=== PATIENT | female | born 1930 | race African-American/Black ===

== ENCOUNTER 2018-12-06 19:31 | Inpatient (IN) | payer OTHER ==
[~2018-12-06] VITALS: Ht 165.1 cm; Wt 104.8 kg
[2018-12-06 19:32] VITALS: BP 178/56
[2018-12-06] MEDS ORDERED: VITAMIN D1000 UNI1 PO (19:48)
[2018-12-06] MEDS ORDERED: ATORVASTATIN CA40 MG PO (19:48)
[2018-12-06] MEDS ORDERED: ASPIR 8181 MG PO (19:48)
[2018-12-06] MEDS ORDERED: HYDROCHLOROTHIA25 M2 PO (19:49)
[2018-12-06] MEDS ORDERED: ZESTRIL40 MG PO (19:49)
[2018-12-06] MEDS ORDERED: GLUCOTROL5 MG PO (19:56)
[2018-12-06] MEDS ORDERED: TOPROL XL25 MG PO (19:56)
[2018-12-06] MEDS ORDERED: METFORMIN HCL500 MG PO (19:56)
[2018-12-06] MEDS ORDERED: MAGOX 400400 MG PO (19:57)
[2018-12-06 20:21] LABS: URINE BILIRUBIN NEGATIVE (Negative); URINE BLOOD 3+ (Negative); URINE COLOR YELLOW; URINE GLUCOSE-RANDOM* NEGATIVE (Negative); URINE KETONES TRACE (Negative); URINE LEUKOCYTES-REFLEX NEGATIVE (Negative); URINE NITRITE-REFLEX NEGATIVE (Negative); URINE PROTEIN (DIPSTICK) 2+ (Negative); URINE SPECIFIC GRAVITY >= 1.030 (1.005-1.035); URINE UROBILINOGEN 0.2 E.U./dl (0.2-1.0)
[2018-12-06 20:24] LABS: URINE CLARITY CLOUDY
[2018-12-06 20:26] LABS: SQUAMOUS 0-3 Few /LPF (0-3); URINE RBC 3-10 Few /HPF (0-2); URINE WBC-REFLEX 0-5 Rare /HPF (0-5)
[2018-12-06 20:27] LABS: AMORPHOUS URATES Few /LPF (None Seen); BACTERIA-REFLEX >30 Many /HPF (None Seen); CASTS None Seen /LPF (None Seen)
[2018-12-06 20:35] LABS: HEMATOCRIT 39.6 % (37.0-47.0); HEMOGLOBIN 13.5 gm/dL (12.0-15.0); MCH 30.3 pg (26.0-34.0); MCHC 34.1 g/dL (28.0-37.0); MCV 88.8 fL (80.0-100.0); PLATELET COUNT 229 thou/uL (150-400); RBC 4.46 mil/uL (4.20-5.00); RDW 13.6 % (10.5-14.5); WBC 10.7 thou/uL (4.0-11.0)
[2018-12-06 20:39] LABS: AMP/METHAMP Negative (Negative); BARBITURATES Negative (Negative); BENZODIAZEPINES Negative (Negative); COCAINE Negative (Negative); METHADONE Negative (Negative); OPIATES Negative (Negative); PCP Negative (Negative)
[2018-12-06 20:49] LABS: BE(vivo) 0.4 mmol/L (-2 to +3); HCO3 22.8 mmol/L (22.0-26.0); PCO2 30.2 mmHg (35.0-45.0); PO2 60.8 mmHg (80.0-100.0); pH 7.495 (7.360-7.450); sO2 93.5 % (92.0-98.0)
[2018-12-06 20:58] LABS: CALCIUM 9.3 mg/dL (8.5-10.1); CREATININE 1.2 mg/dL (0.6-1.0); POTASSIUM 4.2 mmol/L (3.5-5.1)
[2018-12-06 21:00] LABS: ABSOLUTE NEUTROPHILS 7.6 thou/uL (1.4-8.2)
[2018-12-06 21:01] LABS: ANISOCYTOSIS 1+
[2018-12-06 21:04] LABS: ALBUMIN 3.5 g/dL (3.4-5.0); DIRECT BILIRUBIN 0.2 mg/dL (<0.1-0.3); MAGNESIUM 1.8 mg/dL (1.8-2.4); TOTAL BILIRUBIN 1.1 mg/dL (<0.1-1.0); TOTAL PROTEIN 8.5 g/dL (6.4-8.2)
[2018-12-07] VITALS (9 sets, daily range): BP systolic 90–148; BP diastolic 34–65
--- NOTE | 2018-12-07 07:30 | NUR ---
Arrived from ER accompanied by family members. Pt. is alert ,oriented to person, place and some situation. Family stated pt. has dementia and short term memory loss. [place] , no hearing aids. Maintaining O2 sat in the low 90's on 2L/NC. Shortness of breath with exertion and has occasional cough. Temp of 102 upon arrival on the floor then down to 99.7 this am. IV abt and IV fluids started. Pt. has been repositioned. Moaning when being turned stating her legs hurt. Refused SCD's due to that. Lower extremities edematous. Family will bring DPOA documents to be placed in the chart. Bilateral sacral wounds with dressing. Will continue to monitor.
--- NOTE | 2018-12-07 11:00 | EKG ---
[address] [facility] [place] [address] ELECTROCARDIOGRAM REPORT Name: JADEN ZELAYA Room #: 361-P ADM IN M.R.#: [id number] ������������������ Admission: 12/06/18 ������������������ Attend Phys: Marcello Arnold MD Discharge: ������������������ Date of : [birth year] Report #: [id number] ����������������������������������������������������������������� [id number] THIS REPORT FOR: //name// [facility] ED Test Date: 2018-12-06 Test Time: 23:55:19 Pat Name: JADEN ZELAYA Department: Room: 361 Gender: F Hand Shaper: BAKARI : 1930 Requested By: Helga Cast Order Number: [id number] MD: Eugene Esquivel Measurements Intervals [place] Rate: 114 P: 12 WY: 159 QRS: 4 QRSD: 90 T: 222 QT: 334 QTc: 461 Interpretive Statements Sinus tachycardia Multiple premature complexes, vent & supraven Nonspecific ST segment abnormalities No previous ECG available for comparison Electronically Signed On 12-07-2018 10:59:52 CDT by Eugene Esquivel [email or web address] ��������������������������������������������� <ELECTRONICALLY SIGNED> ���������������������������������������� By: Eugene Esquivel MD ��������������������������������������������� 12/07/18 1059 2355 [id number] Eugene Esquivel MD /JESSE
--- NOTE | 2018-12-07 11:02 | EKG ---
[place] [address] [facility] [place] [address] ELECTROCARDIOGRAM REPORT Name: JADEN ZELAYA Room #: 361-P ADM IN M.R.#: [id number] ������������������ Admission: 12/06/18 ������������������ Attend Phys: Marcello Arnold MD Discharge: ������������������ Date of : [birth year] Report #: [id number] ����������������������������������������������������������������� [id number] THIS REPORT FOR: //name// [facility] Test Date: 2018-12-07 Test Time: 07:40:35 Pat Name: JADEN ZELAYA Department: Room: 361 Gender: F Supervisor [employer]: SONJA : 1930 Requested By: Kishan Iglesias Order Number: [id number] MD: Eugene Esquivel Measurements Intervals [place] Rate: 84 P: 11 [place]: 173 QRS: 9 QRSD: 77 T: 224 QT: 461 QTc: 546 Interpretive Statements Sinus rhythm Atrial premature complex Low voltage, precordial leads Nonspecific T abnormalities, diffuse leads Prolonged QT interval Baseline wander in lead(s) V1,V2 No previous ECG available for comparison Electronically Signed On 12-07-2018 11:02:13 CDT by Eugene Esquivel [email or web address] ��������������������������������������������� <ELECTRONICALLY SIGNED> ���������������������������������������� By: Eugene Esquivel MD ��������������������������������������������� 12/07/18 1102 Eugene Esquivel MD /JESSE
--- NOTE | 2018-12-07 15:04 | NUR ---
Assumed care of patient at 0700. Alert and oriented x2-3. Pleasant, follows commands. Forgetful. Denies pain. Maintaining oxygen saturations on 2L NC; does get SOB with activity while moving in bed or laying flat. Productive cough. BP low this afternoon, patient asymptomatic. Dr. Kramer notified and to continue IVF at this time. Low grade fever today. Patient had CT head, negative for anything acute. Doppler of lower extremeties, negative for DVT. Patient is mostly continent, but does display some urgency and does have stress incontinence at times. Using external female catheter at this time. Frequent repositioning and barrier cream applied to sacrum. Low airloss mattress pump applied. Attempting to progress towards POC. Will continue to monitor.
[2018-12-08 04:07] VITALS: BP 101/43
--- NOTE | 2018-12-08 04:19 | NUR ---
Pt. slept fair during the night in between cares. Maintaining O2 sat greater than 90 % on 2L/NC. Shortness of breath with exertion. Loose cough and has good cough effort. Repositioned for comfort. Periods of incontinence , external female cath replaced and voided 500 ml. Protective barrier cream applied on buttocks. Will continue to monitor.
[2018-12-08 04:56] LABS: HEMATOCRIT 32.9 % (37.0-47.0); MCH 29.8 pg (26.0-34.0); MCHC 33.5 g/dL (28.0-37.0); RBC 3.69 mil/uL (4.20-5.00); RDW 13.2 % (10.5-14.5); WBC 8.2 thou/uL (4.0-11.0)
[2018-12-08 05:03] LABS: CALCIUM 8.3 mg/dL (8.5-10.1); POTASSIUM 3.8 mmol/L (3.5-5.1)
[2018-12-08 08:09] VITALS: BP 132/62
[2018-12-08 11:53] VITALS: BP 108/46
--- NOTE | 2018-12-08 15:49 | NUR ---
Assumed care of patient at 0700. Vitals have been stable. Patient alert and oriented x2-3. Remains on 2L NC. SOB with activity. Onetime dose of Lasix given today with good effect. Patient has had adequate urine output. External female catheter in place. Repositioning every 2 hours, or as patient allows. Low airloss mattress pump in place. Poor appetite, continue to encourage PO intake. Family at bedside today. Slowly progressing towards POC. Will continue to monitor.
[2018-12-08 15:51] VITALS: BP 107/41
[2018-12-08 20:05] VITALS: BP 138/68
[2018-12-09 03:35] VITALS: BP 154/80
--- NOTE | 2018-12-09 04:20 | NUR ---
ENCOURAGED TURNS. HER PAIN TO LEFT RIBS HAS BEEN CONTROLLED WITH THE TYLENOL. SHE AWAKENS EASILY, AND IS COOPERATIVE AND FRIENDLY. CAREPLAN REVIEWED. PROGRESSING TOWARD DISCHARGE GOALS.
[2018-12-09 07:28] VITALS: BP 133/58
--- NOTE | 2018-12-09 10:10 | NUR ---
tool planner faxed initial referral to [facility], contacted Mary/admissions at facility to let her know. CM dept. will follow upl
--- NOTE | 2018-12-09 13:00 | NUR ---
on-going assessment: cm reviewed chart and met with patient at the bedside. PT IS FROM [facility]. PT WAS ADMITTED FOR AMS/PNEUMONIA. CM SPOKE WITH NIKI AT [facility] [place] WHO REPORTS PATIENT IS FROM THEIR FACILITY AND THEY WILL ACCEPT BACK AT DISCHARGE. CM NOTIFIED GOLD BUYER TO FAX CLINICAL TO [facility] [place]. CM SPOKE WITH PATIENTS GRANDDAUGHTER MARYAM TO NOTIFY AND SHE IS AGREEABLE WITH DISCHARGE PLAN. PT REPORTS SHE NORMALLY USES A WHEELCHAIR FOR AMBULATION. CM WILL CONTINUE TO FOLLOW TO ASSIST NEEDED.
--- NOTE | 2018-12-09 17:55 | NUR ---
ASSUMED PATIENT CARE AT 1100. A/O X1-2. VSS. INCONTIUNE URINE. Q2H TURN. NO DISDRESS NOTED. SLOWLY TOWARDS POC GOALS.
[2018-12-09 20:15] VITALS: BP 109/51
--- NOTE | 2018-12-10 04:05 | NUR ---
Pt. slept intermittently during the night. Repositioned for comfort. O2 at 2L/NC. No respiratory distress. Shortness of breath with exertion. Tylenol given for left rib pain with some relief. Afebrile. Extrenal female cath replaced. Used bedpan last night and had bm. Making progress towards care plan goals.
[2018-12-10 04:45] VITALS: BP 136/77
[2018-12-10 07:24] VITALS: BP 132/54
[2018-12-10 08:03] LABS: HEMATOCRIT 32.7 % (37.0-47.0); MCH 29.9 pg (26.0-34.0); MCHC 33.6 g/dL (28.0-37.0); MCV 88.8 fL (80.0-100.0); RBC 3.69 mil/uL (4.20-5.00); RDW 13.4 % (10.5-14.5); WBC 4.5 thou/uL (4.0-11.0)
[2018-12-10 08:08] LABS: CALCIUM 8.7 mg/dL (8.5-10.1); CREATININE 0.8 mg/dL (0.6-1.0); POTASSIUM 3.8 mmol/L (3.5-5.1)
[2018-12-10 08:24] LABS: TSH 3.271 uIU/mL (0.358-3.740)
[2018-12-10] MEDS ORDERED: AZITHROMYCIN 2250 MG PO (10:33)
[2018-12-10] MEDS ORDERED: KEFLEX500 M1 PO (10:34)
[2018-12-10] MEDS ORDERED: METOPROLOL SUCC25 M1 PO (10:35)
[2018-12-10 11:35] VITALS: BP 126/58
--- NOTE | 2018-12-10 14:05 | NUR ---
ON-GOING ASSESSMENT: CM REVIEWED CHART AND PT HAS ORDERS TO DISCHARGE BACK TO [facility] [place]. CM NOTIFIED NIKI THE LIASON AT [facility] [place] WHO STATES THEY CAN ACCEPT PT TODAY. CM FAXED D/C ORDERS TO NIKI AT [facility] [place] AND CONFIRMED THEY RECEIVED THEM. CM NOTIFIED BEDSIDE RN OF THE NUMBER FOR REPORT. CM ORDERED CHART COPY AND NOTIFIED MIDDLE SCHOOL COUNSELOR. PATIENT IS REQUIRING STRETCHER FOR TRANSPORTATION SO [facility] VAN TR[facility]#[id number]. CM NOTIFIED NIKI OF TRANSPORTATION TIME. CM ALSO SPOKE WITH PATIENTS GRANDDAUGHTER TO NOTIFY OF DISCHARGE TODAY.
--- NOTE | 2018-12-10 15:44 | NUR ---
ASSUMED PATIENT CARE AT 0700. A/O X2. GETTING MORE ALERT TODAY. NOTED LEFT BUTTOCK STAGE TWO ULCER. ASSITED PATIENT Q2H TURN. VSS, PROGRESSING TOWARDS POC GOALS.
== END 2018-12-10 16:51 | DRG 871 ==
LOC: ER 19:31 → EROBS 23:55 → 3W 23:55
PROVIDERS: Emergency Medicine; Internal Medicine; ADMIT Hospitalist
DX: A41.9 Sepsis, unspecified organism (principal); J18.9 Pneumonia, unspecified organism; G92 Toxic encephalopathy; J96.01 Acute respiratory failure with hypoxia; I69.351 Hemiplegia and hemiparesis following cerebral infarction affecting right dominant side; E66.9 Obesity, unspecified; Z68.38 Body mass index [BMI] 38.0-38.9, adult; E78.5 Hyperlipidemia, unspecified; M62.84 Sarcopenia; D64.9 Anemia, unspecified; I10 Essential (primary) hypertension; E11.9 Type 2 diabetes mellitus without complications; F32.9 Major depressive disorder, single episode, unspecified; L98.419 Non-pressure chronic ulcer of buttock with unspecified severity; Z79.82 Long term (current) use of aspirin; Z79.899 Other long term (current) drug therapy; Z87.891 Personal history of nicotine dependence
CPT/HCPCS: 10879

== ENCOUNTER 2020-04-09 09:34 | Inpatient (IN) | payer OTHER ==
[2020-04-09] VITALS (29 sets, daily range): BP systolic 87–143; BP diastolic 27–56
[~2020-04-09] VITALS: Ht 162.6 cm; Wt 97.5 kg
[~2020-04-09 09:34] MED LIST: ASPIR 8181 MG PO; ATORVASTATIN CA40 MG PO; AZITHROMYCIN 2250 MG PO; GLUCOTROL5 MG PO; HYDROCHLOROTHIA25 M2 PO; KEFLEX500 M1 PO; MAGOX 400400 MG PO; METFORMIN HCL500 MG PO; METOPROLOL SUCC25 M1 PO; TOPROL XL25 MG PO; VITAMIN D1000 UNI1 PO; ZESTRIL40 MG PO
[2020-04-09 10:08] LABS: BE(vivo) -7.3 mmol/L (-2 to +3); HCO3 15.9 mmol/L (22.0-26.0); PCO2 25.9 mmHg (35.0-45.0); pH 7.406 (7.360-7.450)
--- NOTE | 2020-04-09 10:54 | EKG ---
[facility] [place] [address] ELECTROCARDIOGRAM REPORT Name: GARCIAJADEN Room #: PRE M.R.#: [id number] Admission: Attend Phys: Discharge: Date of : [birth year] Report #: [id number] THIS REPORT FOR: cc: Minor Ontiveros,Minor Rjoo,Moe Gan MD ~ THIS REPORT FOR: //name// [facility] ED Test Date: 2020-04-09 Test Time: 09:46:37 Pat Name: JADEN ZELAYA Department: Room: Gender: F Grinder Gear: CONSTANZA : 1930 Requested By: Weston Espino Order Number: [id number] MD: Moe Tadeo Measurements Intervals [place] Rate: 163 P: -64 WY: 81 QRS: -1 QRSD: 80 T: 42 QT: 278 QTc: 458 Interpretive Statements Atrial fibrillation Low voltage, precordial leads ST depression, probably rate related Baseline wander in lead(s) V2 Compared to ECG 12/07/2018 07:40:35 Electronically Signed On 04-09-2020 10:54:17 CDT by Moe Tadeo [email or web address] <ELECTRONICALLY SIGNED> By: Moe Tadeo MD 04/09/20 1054 0946 0946 Moe Tadeo MD /EPI
[2020-04-09 11:30] LABS: ABSOLUTE NEUTROPHILS 8.9 thou/uL (1.4-8.2); HEMATOCRIT 34.6 % (37.0-47.0); HEMOGLOBIN 11.3 gm/dL (12.0-15.0); LYMPHOCYTES 16.5 % (24.0-44.0); MCH 30.2 pg (26.0-34.0); MCHC 32.5 g/dL (28.0-37.0); MCV 92.8 fL (80.0-100.0); PLATELET COUNT 320 thou/uL (150-400); POLYS 73.5 % (36.0-66.0); RBC 3.73 mil/uL (4.20-5.00); RDW 13.4 % (10.5-14.5); WBC 12.1 thou/uL (4.0-11.0)
[2020-04-09 11:49] LABS: CALCIUM 8.8 mg/dL (8.5-10.1); CREATININE 1.5 mg/dL (0.6-1.0); TROPONIN-I 0.06 ng/mL (<0.06)
[2020-04-09 11:55] LABS: POTASSIUM 8.2 mmol/L (3.5-5.1)
[2020-04-09 15:34] LABS: BE(vivo) -8.1 mmol/L (-2 to +3); HCO3 16.7 mmol/L (22.0-26.0); PCO2 31.9 mmHg (35.0-45.0); PO2 61.8 mmHg (80.0-100.0); pH 7.338 (7.360-7.450); sO2 90.7 % (92.0-98.0)
[2020-04-09 15:55] LABS: URINE BILIRUBIN NEGATIVE (Negative); URINE BLOOD 3+ (Negative); URINE CLARITY CLOUDY; URINE COLOR YELLOW; URINE GLUCOSE-RANDOM* NEGATIVE (Negative); URINE KETONES TRACE (Negative); URINE NITRITE-REFLEX NEGATIVE (Negative); URINE PROTEIN (DIPSTICK) 2+ (Negative); URINE SPECIFIC GRAVITY 1.025 (1.005-1.035)
[2020-04-09 15:57] LABS: CALCIUM 8.5 mg/dL (8.5-10.1); CREATININE 1.5 mg/dL (0.6-1.0)
[2020-04-09 15:58] LABS: POTASSIUM 4.1 mmol/L (3.5-5.1)
[2020-04-09 16:01] LABS: URINE LEUKOCYTES-REFLEX 2+ (Negative)
[2020-04-09 16:03] LABS: APTT 40.2 Seconds (24.5-32.8); FIBRINOGEN 557.9 mg/dL (210-360); INR 1.1; PROTIME 11.5 Seconds (9.3-11.4)
[2020-04-09 16:12] LABS: CASTS None Seen /LPF (None Seen); CRYSTALS None Seen /LPF (None Seen); SQUAMOUS 0-3 Few /LPF (0-3); URINE WBC-REFLEX >25 Many /HPF (0-5)
[2020-04-09 20:26] LABS: ALBUMIN 2.3 g/dL (3.4-5.0); DIRECT BILIRUBIN 0.2 mg/dL (<0.1-0.2); TOTAL BILIRUBIN 0.6 mg/dL (0.2-1.0); TOTAL PROTEIN 7.5 g/dL (6.4-8.2)
[2020-04-10] VITALS (37 sets, daily range): BP systolic 75–138; BP diastolic 36–107
[2020-04-10 03:51] LABS: BE(vivo) -7.6 mmol/L (-2 to +3); HCO3 17.7 mmol/L (22.0-26.0); PCO2 35.4 mmHg (35.0-45.0); PO2 62.4 mmHg (80.0-100.0); sO2 90.3 % (92.0-98.0)
[2020-04-10 03:53] LABS: pH 7.318 (7.360-7.450)
[2020-04-10 04:59] LABS: ABSOLUTE NEUTROPHILS 8.9 thou/uL (1.4-8.2); BASOPHILS 0.1 % (0.0-2.0); HEMATOCRIT 29.2 % (37.0-47.0); HEMOGLOBIN 9.6 gm/dL (12.0-15.0); LYMPHOCYTES 23.6 % (24.0-44.0); MCH 30.6 pg (26.0-34.0); MCHC 32.9 g/dL (28.0-37.0); MCV 93.1 fL (80.0-100.0); PLATELET COUNT 302 thou/uL (150-400); POLYS 68.3 % (36.0-66.0); RBC 3.14 mil/uL (4.20-5.00); RDW 13.4 % (10.5-14.5)
[2020-04-10 05:10] LABS: INR 1.2
[2020-04-10 05:19] LABS: ALBUMIN 2.1 g/dL (3.4-5.0); CALCIUM 7.9 mg/dL (8.5-10.1); CREATININE 1.2 mg/dL (0.6-1.0); POTASSIUM 3.7 mmol/L (3.5-5.1); TOTAL BILIRUBIN 0.4 mg/dL (0.2-1.0); TOTAL PROTEIN 7.3 g/dL (6.4-8.2)
[2020-04-11] VITALS (25 sets, daily range): BP systolic 93–140; BP diastolic 41–64
[2020-04-11 05:48] LABS: ABSOLUTE NEUTROPHILS 11.9 thou/uL (1.4-8.2); BASOPHILS 0.1 % (0.0-2.0); HEMATOCRIT 27.5 % (37.0-47.0); HEMOGLOBIN 9.1 gm/dL (12.0-15.0); LYMPHOCYTES 11.7 % (24.0-44.0); MCH 30.7 pg (26.0-34.0); MCHC 33.2 g/dL (28.0-37.0); MCV 92.5 fL (80.0-100.0); MONOCYTES 9.9 % (1.0-8.0); PLATELET COUNT 314 thou/uL (150-400); POLYS 78.3 % (36.0-66.0); RBC 2.97 mil/uL (4.20-5.00); RDW 13.4 % (10.5-14.5); WBC 15.3 thou/uL (4.0-11.0)
[2020-04-11 06:03] LABS: ALBUMIN 1.9 g/dL (3.4-5.0); CALCIUM 7.7 mg/dL (8.5-10.1); CREATININE 1.1 mg/dL (0.6-1.0); PHOSPHORUS 2.5 mg/dL (2.5-4.9); POTASSIUM 3.6 mmol/L (3.5-5.1)
[2020-04-12] VITALS (24 sets, daily range): BP systolic 82–125; BP diastolic 36–61
[2020-04-12 06:26] LABS: CALCIUM 7.7 mg/dL (8.5-10.1); CREATININE 1.2 mg/dL (0.6-1.0); POTASSIUM 3.2 mmol/L (3.5-5.1)
[2020-04-12 10:34] LABS: DIRECT BILIRUBIN 0.2 mg/dL (<0.1-0.2); TOTAL BILIRUBIN 0.5 mg/dL (0.2-1.0)
[2020-04-12 11:11] LABS: BE(vivo) -6.2 mmol/L (-2 to +3); PCO2 30.9 mmHg (35.0-45.0); pH 7.383 (7.360-7.450); sO2 99.2 % (92.0-98.0)
[2020-04-12 22:27] LABS: BE(vivo) -8.3 mmol/L (-2 to +3); HCO3 16.7 mmol/L (22.0-26.0); PCO2 32.4 mmHg (35.0-45.0); PO2 120.5 mmHg (80.0-100.0); sO2 98.2 % (92.0-98.0)
[2020-04-13] VITALS (39 sets, daily range): BP systolic 89–158; BP diastolic 40–73
[2020-04-13 04:21] LABS: BE(vivo) -7.1 mmol/L (-2 to +3); HCO3 17.3 mmol/L (22.0-26.0); PCO2 31.1 mmHg (35.0-45.0); PO2 126.1 mmHg (80.0-100.0); pH 7.363 (7.360-7.450); sO2 98.4 % (92.0-98.0)
--- NOTE | 2020-04-13 09:37 | 2DMMODE ---
[facility] [place] [address] 2 D/M-MODE ECHOCARDIOGRAM Name: JADEN ZELAYA Room #: 246-P ADM IN M.R.#: [id number] Admission: 04/09/20 Attend Phys: Janice Yan Sheriewendy Discharge: Date of : [birth year] Report #: [id number] THIS REPORT FOR: cc: Minor Ontiveros Kevin E. DO Lammoglia, Francisco J. MD ~ APPROVED REPORT Study performed: 04/13/2020 08:55:19 EXAM: Limited 2D, Doppler, and color-flow Echocardiogram Patient Location: ICU Room #: 246 Status: routine BSA: 2.02 HR: 44 bpm BP: 117/54 mmHg Rhythm: Bradycardia Other Information Study Quality: Fair Technically limited study due to morbid obesity, on vent, no mobility. Indications COVID-19 positive. Limited echo done for shortness of breath. On vent. Aortic Valve AoV Peak Luis Carlos.: 1.13 m/s AO Peak Gr.: 5.09 mmHg Pulmonary Valve PV Peak Luis Carlos.: 0.79 m/s PV Peak Gr.: 2.47 mmHg Tricuspid Valve TR Peak Luis Carlos.: 3.06 m/s RAP Estimate: 10.00 mmHg TR Peak Gr.: 37.41 mmHg PA Pressure: 47.00 mmHg Left Ventricle The left ventricle is normal size. There is normal LV segmental wall motion. There is normal left ventricular wall thickness. Left ventricular systolic function is low normal. LVEF is 50%. Mild diastolic dysfunction is present (impaired relaxation [facility] [address] [place] [address] 2 D/M-MODE ECHOCARDIOGRAM Name: JADEN ZELAYA Room #: 246-P ADM IN M.R.#: [id number] Admission: 04/09/20 Attend Phys: Janice Rehman Discharge: Date of : [birth year] Report #: [id number] pattern). Right Ventricle The right ventricle is normal size. The right ventricular systolic function is normal. Atria The left atrium size is normal. The right atrium size is normal. Aortic Valve The aortic valve is normal in structure. No aortic regurgitation is present. There is no aortic valvular stenosis. Mitral Valve The mitral valve is normal in structure. Trace mitral regurgitation. Tricuspid Valve The tricuspid valve is normal in structure. Mild to moderate tricuspid regurgitation. Estimated PAP is 45-50mmHg. Pulmonic Valve Pulmonic valve is not well visualized. Trace pulmonic regurgitation. Great Vessels IVC is dilated and collapses <50% with inspiration. Pericardium There is no pericardial effusion. <Conclusion> The left ventricle is normal size. LVEF is 50%. The aortic valve is normal in structure. The mitral valve is normal in structure. Trace mitral regurgitation. The tricuspid valve is normal in structure. Mild to moderate tricuspid regurgitation. Estimated PAP is 45-50mmHg. Pulmonic valve is not well visualized. [facility] [address] [place] [address] 2 D/M-MODE ECHOCARDIOGRAM Name: GARCIAJADEN Room #: 246-P ADM IN M.R.#: [id number] Admission: 04/09/20 Attend Phys: Janice Rehman Discharge: Date of : [birth year] Report #: [id number] Trace pulmonic regurgitation. There is no pericardial effusion. <ELECTRONICALLY SIGNED> By: Christian Nation MD 04/13/2036 5 5 Christian Nation MD /INF
[2020-04-14] VITALS (33 sets, daily range): BP systolic 94–153; BP diastolic 38–80
--- NOTE | 2020-04-14 10:34 | HC ---
[facility] [place] [address] CONSULTATION Name: JADEN ZELAYA Room #: 246-P [facility] IN M.R.#: [id number] Admission: 04/09/20 Attend Phys: Janice White Discharge: Date of : [birth year] Report #: [id number] THIS REPORT FOR: cc: Minor Ontiveros,Talha Fragoso MD ~ CC: Janice Ontiveros DATE OF SERVICE: 04/12/2020 WOUND CARE CONSULTATION PERSONAL PHYSICIAN: Minor Ontiveros DO CHIEF COMPLAINT: Sacrococcygeal decubitus ulcer, right scapular decubitus ulcer. HISTORY OF PRESENT ILLNESS: This is an 89-year-old white female who is transferred from [facility] for increasing shortness of breath secondary to the COVID-19 infection. Upon arrival to the Emergency Department, the patient was found to be in acute respiratory distress and was intubated, placed on the ventilator. The patient is now currently in the ICU on a ventilator with sedation. 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 The patient herself is unable to give any history. There is no family here at this time. Nursing staff note no other associated wounds. PAST MEDICAL HISTORY: Type 2 diabetes, depression, hypertension, dementia, previous stroke with right left-sided hemiplegia. CURRENT MEDICATIONS: Multiple, I reviewed the patient's medication list. DRUG ALLERGIES: None. SOCIAL HISTORY: The patient has no history of smoking. Resides in a long-term care facility. FAMILY HISTORY AND REVIEW OF SYSTEMS: Unobtainable because the patient is intubated and sedated in the ICU. PHYSICAL EXAMINATION: VITAL SIGNS: The patient is afebrile, pulse 43, respirations 16, BP 117/54. GENERAL: This is an intubated, sedated white female who is in no acute distress [facility] [address] [place] [address] CONSULTATION Name: GARCIAJADEN Room #: 246-P [facility] IN M.R.#: [id number] Admission: 04/09/20 Attend Phys: Janice White Discharge: Date of : [birth year] Report #: [id number] at this time. HEENT: Normocephalic, atraumatic. Mucous membranes are dry. Nasogastric tube is noted in the right naris. The endotracheal tube is noted orally. NECK: Supple with a multi-lumen catheter noted on the right side. There is no JVD. LUNGS: Diminished breath sounds heard throughout with crackles heard throughout. HEART: Regular, without murmur. ABDOMEN: Obese, soft, nontender. EXTREMITIES: Evaluation of the back reveals a stage 3 decubitus ulcer to the right inferior shoulder blade, which is fairly clean and granulating. Periwound is intact without signs of erythema, warmth or cellulitis. No significant undermining or tunneling. Evaluation of the sacrococcygeal and gluteal region reveals a dark black eschar extending out from the midline to both sides. It is fairly firm. Periwound is erythematous. There is no significant undermining or tunneling. Moderate amount of serosanguineous drainage is noted with mild odor. Evaluation of left heel reveals a boggy erythematous region, which is intact consistent with a deep tissue injury. No other associated ulcerations are noted on the rest of the extremities. NEUROLOGIC: The patient is intubated and sedated in the ICU at this time. LABORATORY DATA: White count 15.3, hemoglobin 9.1, BUN 37, creatinine 1.2, albumin 2. IMPRESSION: 1. Unstageable decubitus ulcer in the sacrococcygeal and gluteal region without overt signs of cellulitis. 2. Stage 3 decubitus ulcer of the right inferior scapula. 3. Deep tissue injury to left heel. 4. COVID-19 positive. 5. Respiratory failure, requiring mechanical ventilation. 6. Obesity. 7. Generalized debility. 8. Diabetes mellitus type 2. 9. Severe protein-calorie malnutrition, albumin 2.0. PLAN: 1. At this time, we will start Z guard to the sacrococcygeal region and then cover this with a sacral foam daily and p.r.n. We will put the patient on low air loss mattress, have her turned every 2 hours per protocol. We will put a bordered foam on the right scapular ulceration, change this daily and p.r.n. as well. The deep tissue into the left heel will be treated with Betadine, left open to air. We will use heel protectors on bilateral heels at all times. Pulmonary is managing the respiratory failure, on mechanical ventilation. COVID-19 will be handled with enhanced precautions. 2. Generalized weakness, when the patient is able, will attempt to utilize [address] [address] CONSULTATION Name: JADEN ZELAYA Room #: 246-P ADM IN M.R.#: [id number] Admission: 04/09/20 Attend Phys: Vipindafne Yuriy Cindy Discharge: Date of : [birth year] Report #: [id number] physical and occupational therapy. 3. Severe protein-calorie malnutrition. We will treat with try to maximize her oral protein supplementation when the patient is able. If the patient is persistently on the ventilator, we might talk to the family about a possible PEG tube placement for maximizing nutrition. We will continue all other current medications at this time. We will continue to follow the patient. <ELECTRONICALLY SIGNED> By: Talha Vieira MD 04/14/20 1034 0905 0957 Talha Vieira MD /nt
[2020-04-15] VITALS (8 sets, daily range): BP systolic 104–150; BP diastolic 47–79
[2020-04-15 04:40] LABS: BE(vivo) 0.3 mmol/L (-2 to +3); HCO3 23.2 mmol/L (22.0-26.0); PCO2 31.5 mmHg (35.0-45.0); PO2 64.5 mmHg (80.0-100.0); pH 7.485 (7.360-7.450); sO2 94.3 % (92.0-98.0)
[2020-04-15 05:17] LABS: HEMATOCRIT 29.3 % (37.0-47.0); HEMOGLOBIN 9.5 gm/dL (12.0-15.0); MCH 29.3 pg (26.0-34.0); MCHC 32.5 g/dL (28.0-37.0); PLATELET COUNT 286 thou/uL (150-400); RBC 3.26 mil/uL (4.20-5.00); RDW 13.8 % (10.5-14.5)
[2020-04-15 05:56] LABS: ALBUMIN 1.8 g/dL (3.4-5.0); CALCIUM 7.1 mg/dL (8.5-10.1); CREATININE 0.9 mg/dL (0.6-1.0); POTASSIUM 3.1 mmol/L (3.5-5.1); TOTAL BILIRUBIN 0.5 mg/dL (0.2-1.0); TOTAL PROTEIN 6.2 g/dL (6.4-8.2)
[2020-04-15 12:23] LABS: ABSOLUTE NEUTROPHILS 13.9 thou/uL (1.4-8.2); PLATELET ESTIMATE NORMAL
[2020-04-17 16:06] LABS: ADENOVIRUS Negative (Negative); INFLUENZA A Negative (Negative); INFLUENZA B Negative (Negative); METAPNEUMOVIRUS Negative (Negative); PARAINFLUENZA 1 Negative (Negative); PARAINFLUENZA 2 Negative (Negative); PARAINFLUENZA 3 Negative (Negative); RHINOVIRUS Negative (Negative); RSV A Negative (Negative); RSV B Negative (Negative)
== END 2020-04-15 20:20 | DRG 870 ==
LOC: ER 09:34 → ICU 11:59 → EROBS 11:59 → ICU 12:43
PROVIDERS: Emergency Medicine; Internal Medicine Pulmonary Disease; Pediatrics; Specialist; ADMIT Hospitalist; ATTEND Hospitalist
PROC: 0BH17EZ Insertion of Endotracheal Airway into Trachea, Via Natural or Artificial Opening (ICD-10-PCS; principal; 2020-04-09)
PROC: 5A1955Z Respiratory Ventilation, Greater than 96 Consecutive Hours (ICD-10-PCS; principal; 2020-04-09)
PROC: 02HV33Z Insertion of Infusion Device into Superior Vena Cava, Percutaneous Approach (ICD-10-PCS; 2020-04-09)
DX: A41.9 Sepsis, unspecified organism (principal); L89.113 Pressure ulcer of right upper back, stage 3; U07.1 COVID-19; J12.9 Viral pneumonia, unspecified; J96.01 Acute respiratory failure with hypoxia; E43 Unspecified severe protein-calorie malnutrition; N17.9 Acute kidney failure, unspecified; N39.0 Urinary tract infection, site not specified; E87.0 Hyperosmolality and hypernatremia; I69.351 Hemiplegia and hemiparesis following cerebral infarction affecting right dominant side; E66.9 Obesity, unspecified; E78.5 Hyperlipidemia, unspecified; E11.9 Type 2 diabetes mellitus without complications; F32.9 Major depressive disorder, single episode, unspecified; E55.9 Vitamin D deficiency, unspecified; I10 Essential (primary) hypertension; F03.90 Unspecified dementia, unspecified severity, without behavioral disturbance, psychotic disturbance, mood disturbance, and anxiety; L89.150 Pressure ulcer of sacral region, unstageable; L89.300 Pressure ulcer of unspecified buttock, unstageable; S90.32XA Contusion of left foot, initial encounter; R65.20 Severe sepsis without septic shock; E87.5 Hyperkalemia; D64.9 Anemia, unspecified; Z51.5 Encounter for palliative care; I48.0 Paroxysmal atrial fibrillation; E87.6 Hypokalemia; Z71.3 Dietary counseling and surveillance; Z68.36 Body mass index [BMI] 36.0-36.9, adult; Z87.891 Personal history of nicotine dependence; Z66 Do not resuscitate
CPT/HCPCS: 10078; 10204